=== PATIENT | female | born 1965 | race Caucasian/White ===

== ENCOUNTER 2022-02-27 23:02 | Emergency (ER) | payer BC ==
[2022-02-28] MEDS ORDERED: Orphenadrine Citrate 60 MG/2 ML VIAL ONE (01:21)
[2022-02-28] MEDS ORDERED: Diazepam 5 MG TAB ONE (01:21)
[2022-02-28] MEDS ORDERED: HYDROcodone/Acetaminophen 10/325 mg Tablet ONE (02:02)
[2022-02-28] MEDS ORDERED: Gabapentin 300 MG CAP PO SCH (02:45)
[2022-02-28] MEDS ORDERED: Ketorolac Tromethamine 30 MG/ML VIAL ONE (03:01)
== END 2022-02-28 04:51 | disposition home or self-care (01) ==
LOC: ERS 23:02
DX: M54.50 Low back pain, unspecified (principal); E11.9 Type 2 diabetes mellitus without complications; Z79.82 Long term (current) use of aspirin; Z79.84 Long term (current) use of oral hypoglycemic drugs
CPT/HCPCS: 96372; 99283; J1885; J2360